=== PATIENT | female | born 1955 | race Caucasian/White ===

== ENCOUNTER 2024-11-03 10:14 | Emergency (ER) | payer OTHER ==
[2024-11-03 10:25] VITALS: BP 131/70; PULSE 73; RESP 16; TEMP 98.4; BMI 23.6
[2024-11-03] MEDS ORDERED: diphenhydrAMINE HCL 25 MG CAPSULE (FP) PO ONE (10:47)
[2024-11-03] MEDS: diphenhydrAMINE HCL 25 MG CAPSULE (FP) PO ONE (11:05)
[2024-11-03] MEDS ORDERED: predniSONE 20 MG TABLET (UD) ONE (11:09)
[2024-11-03] MEDS: predniSONE 20 MG TABLET (UD) PO ONE (11:20)
[2024-11-03 11:34] LABS: ABSOLUTE IMMATURE GRANULOCYTES 0.02 x10^3/uL (0.0-0.031); BASOPHILS # 0.02 x10^3/uL (0.01-0.08); EOSINOPHIL % 6.7 % (0.7-5.8); EOSINOPHILS # 0.37 x10^3/uL (0.04-0.36); MCHC 32.2 g/dl (32.2-35.5); MEAN CELL VOLUME 83.7 fl (79.4-94.8); MEAN PLT VOLUME 9.1 fl (9.4-12.3); MONOCYTE # 0.42 x10^3/uL (0.24-0.86); MONOCYTE % 7.6 % (4.7-12.5); RDW 13.6 % (12.4-16.6)
[2024-11-03 11:43] LABS: GLUCOSE,RANDOM 77.0 mg/dL (74-106)
[2024-11-03 11:44] LABS: TOT PROT 7.1 g/dl (6.4-8.2)
[2024-11-03 11:45] LABS: CO2 31.0 mmol/L (21-32)
[2024-11-03 11:46] LABS: ALK PHOS 47.0 U/L (40-150)
[2024-11-03 11:49] LABS: CREATININE 0.66 mg/dL (0.55-1.3); SGOT/AST 20.0 U/L (5-34); SGPT/ALT 9.0 U/L (0-55)
[2024-11-03 12:08] LABS: HCV DIAGNOSTIC IN-HOUSE W/RFLX NON-REACTIVE (NONREACTIVE)
[2024-11-03] MEDS ORDERED: PENICILLIN G BENZATHINE 1,200,000 UNIT/2 ML PFS IM ONE (13:09)
[2024-11-03 13:14] LABS: HIV INTERPRETATION NEGATIVE (NEGATIVE)
[2024-11-03] MEDS: PENICILLIN G BENZATHINE 1,200,000 UNIT/2 ML PFS IM ONE (13:46)
== END 2024-11-03 13:47 | disposition home or self-care (01) ==
LOC: JER 10:14
DX: R21 Rash and other nonspecific skin eruption (principal)
CPT/HCPCS: 36415; 80053; 85025; 86803; 87389; 99284-25